=== PATIENT | female | born 1990 | race Caucasian/White ===

== ENCOUNTER 2024-10-01 09:24 | Outpatient (AMB) | payer BC, SELFPAY ==
--- NOTE | 2024-10-01 09:28 | MHC.PC.OV ---
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 Needs refills of Levothyroxine and Control. Allergies mold Allergy (Verified 10/01/24 09:32) Wheezing Seasonal Allergies Allergy (Verified 10/01/24 09:32) Congestion wheat Allergy (Verified 10/01/24 09:32) Stomach Upset Tobacco use date assessed: 10/01/24 Dental Screening Dental Screen Date: 10/01/24 Did you have a dental visit in the last 12 months?: Yes Did you have a dental problem in the last 6 months where you did not have access to dental care?: No Was dental information given to patient?: Patient has dentist HPI HPI Comments History of Present Illness Details This is a 34-year-old female with a past medical history of hypothyroidism and obesity presenting to establish care. She is due for a physical. She moved from [place] to [place] about a year ago after finishing grad school. She runs a lab. Hypothyroidism is treated with levothyroxine 88 mcg daily. Her thyroid gland feels mildly enlarged on exam today but no palpable masses. Thyroid ultrasound and TSH ordered for further evaluation. She is under the care of a psychiatrist for anxiety and depression. She takes fluoxetine and trazodone. She does not have an OBGYN. She needs her control filled. Refills sent to pharmacy and referred to Gynecology. We discussed obesity today. She is going to work on lifestyle modifications and is not interested in referral to dietitian or medications at this time. Patient unsure if she received a tetanus immunization at [facility] when she was seen there for primary care. She will obtain the records, and if they can not be obtained I recommended she get this immunization. ROS: Constitutional: No unexplained weight loss, fever, chills, fatigue or night sweats. Eyes: No vision changes, blurry vision, double vision, eye pain, eye redness, eye discharge. ENT: No hearing loss, sneezing, congestion, runny nose or sore throat. Respiratory: No shortness of breath, cough or sputum production. Cardiovascular: No chest pain, chest pressure or chest discomfort. No palpitations or pedal edema. Gastrointestinal: No anorexia, nausea, vomiting or diarrhea. No abdominal pain or blood in stool. Genitourinary: No dysuria, hematuria, urinary frequency. Neurologic: No headache, dizziness, syncope, unilateral weakness, ataxia, numbness or tingling in the extremities. Musculoskeletal: No muscle pain, back pain, joint pain or swelling. Hematologic/Lymphatics: No bleeding or bruising. No painful lymph nodes. Skin: No rash or itching. Endocrine: No cold or heat intolerance. No polyuria or polydipsia. Psychiatric: Per HPI Physical exam: Constitutional: Alert, in no distress. Head: Normocephalic. Eyes: Pupils are equal, round and reactive to light. Extraocular muscles intact. Ear, Nose and Throat: Canals clear. TMs normal. Normal nasal mucosa. No nasal discharge. No oral lesions. Neck: Supple, Full range of motion. No lymphadenopathy. No palpable thyroid masses. Mild thyromegaly. Respiratory: Clear to auscultation. Cardiovascular: S1 S2 regular. No murmurs. Gastrointestinal: Abdomen soft, non-tender, non-distended. Normal bowel sounds. No palpable masses. Neurologic: No focal neurological deficits. Symmetric patellar reflexes. Moves all extremities spontaneously. Sensation intact bilaterally. Skin: No rashes or lesions. Musculoskeletal: No gross deformities. Normal range of motion. Extremities: Warm and well perfused. No clubbing, cyanosis or edema Psychiatric: Normal mood and affect [facility] Medical History (Updated 10/01/24 @ 17:21 by TRAMAINE Goddard) Depression with anxiety Hypothyroid Screening for cardiovascular condition Routine physical examination Family History (Updated 10/01/24 @ 09:41 by Talya Brooks MA) Paternal Grandmother Hypertension Father Hyperlipemia FHx: mental illness Sister Genetic thyroid disorder Anxiety Depression ADHD (attention deficit hyperactivity disorder) Maternal Grandfather Bladder cancer FH: kidney cancer Mother FHx: mental illness Brother Depression ADHD (attention deficit hyperactivity disorder) Social History (Updated 10/01/24 @ 09:42 by Talya Brooks MA) Housing: Apartment Alcohol intake: current Patient Tobacco Use Status: Former Tobacco user Cigarette Packs Per Day: 1 Cigarettes Per Day: 3 Years Smoked: 7 e-Cigarette/Vaping Use: Never Used Second Hand Smoke Exposure: No Substance Use Type: Marijuana service: No Current occupational status: employed Current occupation: [employer] Current occupational exposures/hazards: No Cognitive needs: No Hearing needs: No Vision needs: No Questionnaire PHQ-9 Over the last 2 weeks, how often have you been bothered by any of the following problems? 1. Little interest or pleasure in doing things: several days 2. Feeling down, depressed, or hopeless: not at all 3. Trouble falling or staying asleep, or sleeping too much: more than half the days 4. Feeling tired or having little energy: more than half the days 5. Poor appetite or overeating: more than half the days 6. Feeling bad about yourself - or that you are a failure or have let yourself or your family down: not at all 7. Trouble concentrating on things, such as reading the newspaper or watching television: not at all 8. Moving or speaking so slowly that other people could have noticed. Or the opposite - being so fidgety or restless that you have been moving around a lot more than usual: not at all 9. Thoughts that you would be better off or of hurting yourself in some way: not at all Total score: 7 Depression Screening Interpretation: Positive Depression Screening Follow-up: Existing condition and In treatment Depression Screening Done: Yes 02628 - PHQ-9 Billing: Yes Source: Developed by Drs. Charles Santamaria, Daya Sanchez, Anthony Arzola and colleagues, with an educational leidy from [employer]. Thrive Questionnaire Date Thrive assessed: 10/01/24 I am a: Patient What is your living situation today?: I have a steady place to live Within the past 12 months, did the food you bought not last and you didn't have the money to get more?: Never true Within the past 12 months, did you worry whether your food would run out before you got money to buy more?: Never true Do you have trouble paying for medicines?: No Do you have trouble getting transportation to medical appointments?: No Do you have trouble paying your heating and electricity bill?: No Do you have trouble taking care of your child, family member or friend?: No Do you have trouble with day-to-day activities such as bathing, preparing meals, shopping, managing finances, etc.?: No Are you currently unemployed and looking for a job?: No Are you interested in more education?: Yes Please select the resources that you would like help with: None Currently or been in a relationship where the following occur: I choose not to answer THRIVE Score: 0 AUDIT C Alcohol Use Questionnaire (AUDIT-C) 1. How often do you have a drink containing alcohol?: Monthly or less 2. How many drinks containing alcohol do you have on a typical day when you are drinking?: 1 or 2 3. How often do you have six or more drinks on one occasion?: Never Total Score: 1 ALEXIS-7 AMB Questionnaire ALEXIS-7 Date ALEXIS - 7 assessed: 10/01/24 Feeling nervous, anxious, or on edge: 3 = Nearly every day Not being able to stop or control worryin = More than half the days Worrying too much about different things: 2 = More than half the days Trouble relaxin = More than half the days Being so restless that it is hard to sit still: 2 = More than half the days Becoming easily annoyed or irritable: 0 = Not at all Feeling afraid as if something awful might happen: 1 = Several days Total ALEXIS-7 score (0-4 normal; 5-9 mild; 10-14 moderate; 15-21 severe): 12 Source: Developed by Drs. Charles Santamaria, Daya Sanchez, Anthony Arzola and colleagues, with an educational leidy from [employer]. ALEXIS-7 Assessment Billing ALEXIS-7 Assessment Tool: ALEXIS-7 Assessment 12989 Physical exam (Primary Care) Vital Signs: Last Vital Signs Temp 98.0 F 10/01/24 09:42 Pulse 81 10/01/24 09:42 BP 104/68 10/01/24 09:42 Pulse Ox 96 10/01/24 09:42 Oxygen Delivery Method Room Air 10/01/24 09:42 BMI result Body Mass Index 34.0 Tobacco/Smoking Status: Tobacco use Status Tobacco use date assessed 10/01/24 10/01/24 09:46 Patient Tobacco Use Status Former Tobacco user 10/01/24 09:46 e-Cigarette/Vaping Use Never Used 10/01/24 09:46 PHQ-9: PHQ-9 Score PHQ-9: Total score 7 10/01/24 09:46 Depression Screening Interpretation: Positive Depression Screening Follow-up: Existing condition and In treatment Thrive Assessment: Date of Thrive Assessment Date Thrive assessed 10/01/24 10/01/24 09:46 Currently or been in a relationship where the following occur: I choose not to answer Coding Level of Care Code New Pt Prev Care 18-39yr([id number] Diagnoses Hypothyroid E03.9 Routine physical examination Z00.00 Screening for cardiovascular condition Z13.6 Additional Codes ALEXIS-7 Assessment Billing - ALEXIS-7 Assessment Tool: ALEXIS-7 Assessment 33428 ([id number]) PHQ-9 - 71435 - PHQ-9 Billing: Yes ([id number]) Assessment & Plan Assessment & Plan (1) Hypothyroid: Code(s): E03.9 - Hypothyroidism, unspecified Category: Medical (2) Routine physical examination: Code(s): Z00.00 - Encounter for general adult medical examination without abnormal findings Category: Medical (3) Screening for cardiovascular condition: Code(s): Z13.6 - Encounter for screening for cardiovascular disorders Category: Medical Plan Patient is seen today for a routine physical. As part of this visit we reviewed the following issues, which are considered and essential part of preventative health in this age group: - Breast Cancer screening - Annual Microfiche Duplicator exam - Blood pressure screening - Cholesterol screening - Osteoporosis prevention including calcium/vitamin D intake, weight bearing exercise & smoking cessation - Nutritional and exercise counseling - Counseling of injury prevention including fire prevention, smoke alarms and seat belt usage - Screening for depression - Prevention of and/or testing for infectious diseases - Education about skin cancer - Recommendations about immunizations - Recommendation of an eye exam - Screening for substance abuse Schedule physical exam in 1 year. Orders: Orders Complete Blood Count no Diff Today E03.9 - Hypothyroidism, unspecified, Z00.00 - Encounter for general adult medical examination without abnormal findings, Z13.6 - Encounter for screening for cardiovascular disorders TSH reflex Free T4 Today E03.9 - Hypothyroidism, unspecified, Z00.00 - Encounter for general adult medical examination without abnormal findings, Z13.6 - Encounter for screening for cardiovascular disorders US thyroid Today E03.9 - Hypothyroidism, unspecified Comprehensive Met. Panel Today E03.9 - Hypothyroidism, unspecified, Z00.00 - Encounter for general adult medical examination without abnormal findings, Z13.6 - Encounter for screening for cardiovascular disorders Lipid Panel Today E03.9 - Hypothyroidism, unspecified, Z00.00 - Encounter for general adult medical examination without abnormal findings, Z13.6 - Encounter for screening for cardiovascular disorders Referrals UTILITIES MANAGER Referral Z01.419 - Encounter for gynecological examination (general) (routine) without abnormal findings Medications: New levothyroxine 88 mcg PO DAILY 90 caps 3RF L norgest/e.estradiol-e.estrad 0.15 mg-30 mcg (84)/10 mcg (7) (Daysee) 1 tab PO DAILY 91 ea 3RF
[2024-10-01 09:42] VITALS: BP 104/68; PULSE 81; TEMP 36.7; O2SAT 96; BMI 34.0
== END 2024-10-01 10:11 | disposition home or self-care (01) ==
LOC: HO.HMCFM 09:25
PROVIDERS: PCP Physician Assistant Medical; Visit Provider Physician Assistant Medical
DX: E03.9 Hypothyroidism, unspecified (principal); Z00.00 Encounter for general adult medical examination without abnormal findings; Z13.6 Encounter for screening for cardiovascular disorders

== ENCOUNTER → 2024-10-01 09:24 | Outpatient (BNVA) | payer BC, SELFPAY | PROVIDERS: PCP Physician Assistant Medical; Visit Provider Physician Assistant Medical | DX: Z00.00 Encounter for general adult medical examination without abnormal findings (principal); Z13.6 Encounter for screening for cardiovascular disorders; E03.9 Hypothyroidism, unspecified; F41.8 Other specified anxiety disorders; Z76.89 Persons encountering health services in other specified circumstances; Z76.0 Encounter for issue of repeat prescription; Z13.30 Encounter for screening examination for mental health and behavioral disorders, unspecified | CPT/HCPCS: 96127 ==

== ENCOUNTER 2024-10-01 10:38 | Outpatient (REF) | payer BC, SELFPAY ==
[2024-10-01 13:46] LABS: Hematocrit 40.9 % (37.0-47.0); Hemoglobin 13.9 g/dl (12.0-16.0); Mean Corpuscular Hemoglobin 30.9 pg (27.0-33.0); Mean Corpuscular Volume 90.9 fL (80.0-98.0); Mean Platelet Volume 9.4 fL (9.4-12.3); Platelet Count 357 X10*3/uL (160-400); Red Cell Distribution Width 12.8 % (11.0-16.0); White Blood Count 6.8 X10*3/uL (4.8-10.8)
[2024-10-01 14:08] LABS: Alanine Aminotransferase 29 U/L (0-31); Albumin Level 4.8 g/dL (3.5-5.0); Alkaline Phosphatase 68 U/L (39-117); Anion Gap 9 (12-20); Aspartate Amino Transferase 28 U/L (5-31); Bilirubin Total 0.4 mg/dL (0.0-1.0); Blood Urea Nitrogen 8 mg/dL (9-16); Calcium 9.7 mg/dL (8.4-10.2); Carbon Dioxide 27 mmol/L (22-29); Chloride 107 mmol/L (96-108); Cholesterol 262 mg/dL (<200); Estimated Glomerular Filt Rate > 60; Glucose Random 79 mg/dL (60-115); HDL Cholesterol 38 mg/dL (>40); LDL Cholesterol Calculated 197 mg/dL (<100); Potassium 4.2 mmol/L (3.3-5.1); Sodium 139 mmol/L (135-145); Total Protein 7.8 g/dL (6.5-8.0); Triglycerides 135 mg/dL (<150)
[2024-10-01 14:23] LABS: TSH reflex Free T4 4.64 uIU/mL (0.32-4.0)
[2024-10-01 15:00] LABS: Free T4 (Free Thyroxine) 0.95 ng/dL (0.71-1.85)
== END 2024-10-01 10:39 | disposition home or self-care (01) ==
LOC: HO.WFDLDS 10:38
PROVIDERS: Visit Provider Physician Assistant Medical
DX: Z00.00 Encounter for general adult medical examination without abnormal findings (principal); E03.9 Hypothyroidism, unspecified; Z13.6 Encounter for screening for cardiovascular disorders
CPT/HCPCS: 36415; 80053; 80061; 84439; 84443; 85027

== ENCOUNTER 2024-11-25 15:21 | Outpatient (REF) | payer BC, SELFPAY ==
--- NOTE | ~2024-11-25 | US_ITS ---
EXAMINATION: US THYROID CLINICAL INFORMATION: Hyperthyroidism, unspecified. COMPARISON: None available. TECHNIQUE: Linear transducer grayscale and color Doppler examination with attention to the region of the thyroid. FINDINGS: SIZE: Measurements of the thyroid lobes and nodules are given in sagittal, anteroposterior and transverse dimensions respectively. Right Thyroid Lobe: 6.5 x 2.5 x 2.2 cm, volume 17.3 mL. Parenchyma: The gland echotexture is heterogeneous. Thyroid vascularity is increased. Left Thyroid Lobe: 5.7 x 2.1 x 2.0 cm, volume 12.2 mL. Parenchyma: The gland echotexture is heterogeneous. Thyroid vascularity is increased. Isthmus: 0.7 cm in maximum AP dimension. Estimated total number of nodules greater than or equal to 1 cm: 0. Advertising Consultant nodules are described as follows: US/US thyroid IMPRESSION: ACR TI-RADS category: 2 concerning multinodular goiter without dominant nodule versus hyperthyroidism. ACR TI-RADS RECOMMENDATION REFERENCE: Ultrasound-guided fine-needle aspiration, followup ultrasound, no further follow up. * TR1 (0 point) and TR2 (2 points): No FNA or follow up. * TR3 (3 points): FNA if more than or equal to 2.5 cm in maximum dimension, followup ultrasound in 1, 3 and 5 years if 1.5 to 2.4 cm in maximum dimension. * TR4 (4-6 points): FNA if more than or equal to 1.5 cm in maximum dimension, followup ultrasound in 1, 2, 3 and 5 years if 1 to 1.4 cm in maximum dimension. * TR5 (more than or equal to 7 points): FNA if more than or equal to 1 cm in maximum dimension, followup ultrasound every year for 5 years if 0.5 to 0.9 cm in maximum dimension. * TR3, TR4 or TR5 nodules that are below the size threshold for followup receive no follow up. Electronically signed by: Miles Francisco MD 11/25/2024 03:57 PM EDT
== END 2024-11-25 15:22 | disposition home or self-care (01) ==
LOC: HO.HMGCX 15:21
PROVIDERS: PCP Physician Assistant Medical; Visit Provider Physician Assistant Medical
DX: E03.9 Hypothyroidism, unspecified (principal)
CPT/HCPCS: 76536

== ENCOUNTER → 2024-11-25 15:23 | Outpatient (BNV) | payer BC, SELFPAY | PROVIDERS: PCP Physician Assistant Medical; Visit Provider Radiology Diagnostic Radiology | DX: E03.9 Hypothyroidism, unspecified (principal) | CPT/HCPCS: 76536 ==

== ENCOUNTER 2025-02-04 11:05 | Outpatient (AMB) | payer BC, SELFPAY ==
--- NOTE | 2025-02-04 11:28 | A.OFFPC_ITS ---
Vital Signs 02/04/25 11:32 Height 5 ft 4 in Weight 202 lb 6 oz BMI 34.7 BP 106/72 Blood Pressure Location Lt brachial Position Sitting Respiration 16 Pulse 71 Pulse Source Pulse Oximeter Temp 97.9 F Temp Source Temporal Artery Scan Pulse Oximetry (%) 96 Oxygen Delivery Method Room Air Intake Visit Reasons: 3 month follow up/lab review. Intake Note: Oanh presents in the office today for a 3 month follow up and lab review. Allergies mold Allergy (Verified 02/04/25 11:30) Wheezing Seasonal Allergies Allergy (Verified 02/04/25 11:30) Congestion wheat Allergy (Verified 02/04/25 11:30) Stomach Upset Tobacco use date assessed: 02/04/25 Dental Screening Dental Screen Date: 02/04/25 Did you have a dental visit in the last 12 months?: Yes Did you have a dental problem in the last 6 months where you did not have access to dental care?: Yes Was dental information given to patient?: Patient has dentist HPI HPI Comments History of Present Illness Details This is a 35-year-old female with a past medical history of hypothyroidism, depression with anxiety and hyperlipidemia presenting for follow up. Hyperlipidemia-She cut back on consumption of red meat, but she admits to eating pasta with mozz cheese reqularly. She says this is a comfort food, and she is not willing to give this up. Denies family history of early CAD. Hypothyroidism is treated with levothyroxine 100 mcg daily. This was increased because her last TSH was mildly elevated. She is under the care of a psychiatrist for anxiety and depression. She takes fluoxetine and trazodone. The doses have been increased, and they are working better. She does not have an OBGYN. She needs her control filled. Refills sent to pharmacy and referred to Gynecology. ROS: Constitutional: No unexplained weight loss, fever, chills, fatigue or night sweats. Respiratory: No shortness of breath, cough or sputum production. Cardiovascular: No chest pain, chest pressure or chest discomfort. No palpitations or pedal edema. Psychiatric: Per HPI Physical exam: Constitutional: Alert, in no distress. Neck: Supple, Full range of motion. No lymphadenopathy. No palpable thyroid masses. Respiratory: Clear to auscultation. Cardiovascular: S1 S2 regular. No murmurs. Extremities: Warm and well perfused. No clubbing, cyanosis or edema Psychiatric: Normal mood and affect [facility] Medical History (Updated 02/04/25 @ 22:01 by TRAMAINE Goddard) Pure hypercholesterolemia Depression with anxiety Hypothyroid Screening for cardiovascular condition Routine physical examination Family History Paternal Grandmother Hypertension Father Hyperlipemia FHx: mental illness Sister Genetic thyroid disorder Anxiety Depression ADHD (attention deficit hyperactivity disorder) Maternal Grandfather Bladder cancer FH: kidney cancer Mother FHx: mental illness Brother Depression ADHD (attention deficit hyperactivity disorder) Social History (Updated 02/04/25 @ 11:32 by Talya Brooks CMA) Housing: Apartment Alcohol intake: current Patient Tobacco Use Status: Former Tobacco user Cigarette Packs Per Day: 1 Cigarettes Per Day: 3 Years Smoked: 7 e-Cigarette/Vaping Use: Never Used Second Hand Smoke Exposure: No Substance Use Type: Marijuana service: No Current occupational status: employed Current occupation: [employer] Current occupational exposures/hazards: No Cognitive needs: No Hearing needs: No Vision needs: No Questionnaire Thrive Questionnaire Date Thrive assessed: 10/01/24 I am a: Patient What is your living situation today?: I have a steady place to live Within the past 12 months, did the food you bought not last and you didn't have the money to get more?: Never true Within the past 12 months, did you worry whether your food would run out before you got money to buy more?: Never true Do you have trouble paying for medicines?: No Do you have trouble getting transportation to medical appointments?: No Do you have trouble paying your heating and electricity bill?: No Do you have trouble taking care of your child, family member or friend?: No Do you have trouble with day-to-day activities such as bathing, preparing meals, shopping, managing finances, etc.?: No Are you currently unemployed and looking for a job?: No Are you interested in more education?: Yes Please select the resources that you would like help with: None Currently or been in a relationship where the following occur: I choose not to answer THRIVE Score: 0 ALEXIS-7 AMB Questionnaire ALEXIS-7 Date ALEXIS - 7 assessed: 10/01/24 Source: Developed by Daya SinghW. Daniel, Anthony Arzola and colleagues, with an educational leidy from [employer]. Physical exam (Primary Care) Vital Signs: Last Vital Signs Temp 97.9 F 02/04/25 11:32 Pulse 71 02/04/25 11:32 Resp 16 02/04/25 11:32 BP 106/72 02/04/25 11:32 Pulse Ox 96 02/04/25 11:32 Oxygen Delivery Method Room Air 02/04/25 11:32 BMI result Body Mass Index 34.7 Tobacco/Smoking Status: Tobacco use Status Tobacco use date assessed 02/04/25 02/04/25 11:35 Patient Tobacco Use Status Former Tobacco user 02/04/25 11:32 e-Cigarette/Vaping Use Never Used 02/04/25 11:32 Thrive Assessment: Date of Thrive Assessment Date Thrive assessed 10/01/24 02/04/25 11:30 Currently or been in a relationship where the following occur: I choose not to answer Coding Level of Care Code Est Pt Level 4 (34737) Complex EM visit Add On G2211 Diagnoses Depression with anxiety F41.8 Hypothyroid E03.9 Pure hypercholesterolemia E78.00 Assessment & Plan Assessment & Plan (1) Depression with anxiety: Code(s): F41.8 - Other specified anxiety disorders Category: Medical Plan: She is doing better since her medications were adjusted. Continue management per psych. (2) Hypothyroid: Code(s): E03.9 - Hypothyroidism, unspecified Category: Medical Plan: Continue Levothyroxine. Check TSH. (3) Pure hypercholesterolemia: Code(s): E78.00 - Pure hypercholesterolemia, unspecified Category: Medical Plan: Recommended mediterranean diet. Avoid smoker. Encouraged exercise. Recheck lipids. Plan Return for physical in 2025. Orders: Orders Influenza [id number] Immunization Today Z23 - Encounter for immunization Medications: New Fluarix [id number] (PF) (flu vac ts (6mos up)-PF) 0.5 mL IM ONCE 0.5 mL 0RF NS Z23 - Encounter for immunization
[2025-02-04 11:32] VITALS: BP 106/72; PULSE 71; RESP 16; TEMP 36.6; O2SAT 96; BMI 34.7
== END 2025-02-04 12:03 | disposition home or self-care (01) ==
LOC: HO.HMCFM 11:06
PROVIDERS: PCP Physician Assistant Medical; Visit Provider Physician Assistant Medical
DX: F41.8 Other specified anxiety disorders (principal); E03.9 Hypothyroidism, unspecified; E78.00 Pure hypercholesterolemia, unspecified

== ENCOUNTER 2025-02-04 11:05 | Outpatient (REF) | payer BC, SELFPAY ==
[2025-02-04 15:09] LABS: Cholesterol 242 mg/dL (<200); HDL Cholesterol 37 mg/dL (>40); Triglycerides 118 mg/dL (<150)
== END 2025-02-04 11:06 | disposition home or self-care (01) ==
LOC: HO.WFDLDS 11:05
PROVIDERS: PCP Physician Assistant Medical; Visit Provider Physician Assistant Medical
DX: E78.5 Hyperlipidemia, unspecified (principal); E03.9 Hypothyroidism, unspecified; F41.8 Other specified anxiety disorders; E78.00 Pure hypercholesterolemia, unspecified
CPT/HCPCS: 36415; 80061; 84443